=== PATIENT | female | born 1970 | race Caucasian/White ===

== ENCOUNTER → 2016-12-14 | Outpatient (CLI) | payer BC ==
[~2016-12-14] MED LIST: ASPIRIN325 MG PO; ATARAX,VISTARIL50 MG PO; ATIVAN1 MG PO; CATAFLAM50 MG PO; DOXYCYCLINE100 M2 PO; FLONASE ALLERG9.9 ML NAS; LEVOFLOXACIN500 MG PO; MEDROL DOSEPAK4 MG PO; NAPROSYN500 MG PO; PEPCID40 MG PO; PREDNISOLONE5 MG PO; PREDNISONE20 M1 PO; PROAIR HFA8.5 GM INH; PROTONIX40 MG PO; ROBAXIN500 MG PO; ROBITUSSIN AC 10 MG/ PO; ROBITUSSIN AC 110 ML PO; ULTRAM50 MG PO; VICODIN 500 MG-1 TAB PO; ZITHROMAX Z PA250 MG PO
== END | disposition home or self-care (01) ==
LOC: RAD 16:41
DX: S80.01XD Contusion of right knee, subsequent encounter (principal); X58.XXXD Exposure to other specified factors, subsequent encounter

== ENCOUNTER → 2017-04-11 | Outpatient (CLI) | payer BC ==
[2017-04-11 12:46] LABS: BODY FLUID WBC 276 /uL
[2017-04-11 13:31] LABS: BF LYMPHOCYTES 20 %; BF MACROPHAGES 57 %; BF NEUTROPHILS 23 %
[2017-04-12 14:05] LABS: ACID FAST SMEAR Negative (.)
== END | disposition home or self-care (01) ==
LOC: LAB 10:50
PROVIDERS: Physician Assistant
DX: M25.461 Effusion, right knee (principal)

== ENCOUNTER 2018-06-14 18:51 | Emergency (ER) | payer BC ==
[~2018-06-14] VITALS: Ht 162.5 cm; Wt 120.7 kg
[2018-06-14 18:52] VITALS: BP 153/91
[2018-06-14 19:57] LABS: BASO # 0.1 10*3/uL (0.0-0.1); BASO % 0.6 % (0.0-1.0); EOS # 0.2 10*3/uL (0.0-0.4); EOS % 1.3 % (1.0-4.0); HEMATOCRIT 47.1 % (37.0-47.0); HEMOGLOBIN 15.5 g/dl (12.0-16.0); LYMPH # 3.4 10*3/uL (1.3-4.4); LYMPH % 26.8 % (27.0-41.0); MEAN CELL VOLUME 94.6 fl (81.0-99.0); MEAN CORPUSCULAR HGB 31.1 pg (27.0-31.0); MEAN CORPUSCULAR HGB CONC 32.9 g/dl (33.0-37.0); MEAN PLATELET VOLUME 9.7 fl (9.6-12.3); MONO # 0.6 10*3/uL (0.1-1.0); MONO % 4.8 % (3.0-9.0); NEUT # 8.3 10*3/uL (2.3-7.9); PLATELET COUNT AUTOMATED 334 10*3/uL (130-400); RED BLOOD COUNT 4.98 10*6/uL (4.10-5.10); RED CELL DISTRI WIDTH 13.2 % (0-14.5); WHITE BLOOD COUNT 12.6 10*3/uL (4.8-10.8)
[2018-06-14 20:13] LABS: ALBUMIN 3.1 gm/dl (3.1-4.5); ALKALINE PHOSPHATASE 105 U/L (45-117); BUN 14 mg/dl (7-24); CHLORIDE 107 mmol/L (98-107); CREATININE 0.84 mg/dL (0.55-1.02); POTASSIUM 4.3 mmol/L (3.5-5.1); SGOT/AST 23 IU/L (3-35); SGPT/ALT 27 U/L (12-78); SODIUM 140 mmol/L (136-145); TOTAL PROTEIN 6.7 gm/dL (6.4-8.2)
[2018-06-14 20:18] LABS: LIPASE 125 U/L (73-393)
[2018-06-14 20:48] LABS: BILIRUBIN NEGATIVE (NEGATIVE); BLOOD 1+ (NEGATIVE); CLARITY CLEAR (CLEAR); COLOR YELLOW (YELLOW); GLUCOSE NEGATIVE (NEGATIVE); KETONE NEGATIVE (NEGATIVE); LEUKO ESTERASE NEGATIVE (NEGATIVE); NITRITE NEGATIVE (NEGATIVE); PH 5.5 (5.0-9.0); SPECIFIC GRAVITY >= 1.030 (1.005-1.030); UROBILINOGEN 0.2 E.U./dl (0.2-1.0)
[2018-06-14 21:12] LABS: BACTERIA TRACE
[2018-06-14 21:13] LABS: WBC 0-2 wbc/hpf (0-5)
[2018-07-04] MEDS ORDERED: CELEXA20 MG PO (06:50)
== END 2018-06-14 21:20 | disposition home or self-care (01) ==
LOC: ED 18:51
PROVIDERS: Physician Assistant
DX: B34.9 Viral infection, unspecified (principal); M79.601 Pain in right arm; R10.9 Unspecified abdominal pain; F17.200 Nicotine dependence, unspecified, uncomplicated; Z90.49 Acquired absence of other specified parts of digestive tract; Z87.442 Personal history of urinary calculi; Z88.8 Allergy status to other drugs, medicaments and biological substances; Z79.2 Long term (current) use of antibiotics; Z79.899 Other long term (current) drug therapy

== ENCOUNTER → 2018-07-04 | Outpatient (CLI) | payer BC ==
[~2018-07-04] MED LIST changes: +CELEXA20 MG PO
--- NOTE | ~2018-07-04 | ST ---
[place], [place] EXERCISE STRESS TEST REPORT [id number] #: [id number] ROOM: DOCTOR: IAN NJ MD BIRTHDATE: [birth year] DOS: 07/04/2018 FINDINGS: The patient walked on the Adrien protocol for duration of 6 minutes. Heart rate is about 164, 94% predicted heart rate. Procedure is terminated at the completion of the protocol. Baseline cardiogram is sinus rhythm. With exercise, no EKG changes. No chest discomfort. Blood pressure and heart rate response is normal. FINAL IMPRESSION: No EKG changes with exercise. No chest pain with exercise. No dysrhythmia with exercise. Blood pressure and heart rate is normal. It is a normal exercise stress test without any obvious evidence of ischemia. IAN NJ MD CM:STRESS:EXERCISE STRESS TEST REPORT [id number] IAN NJ MD
--- NOTE | ~2018-07-04 | EKG ---
[place], [place] ELECTROCARDIOGRAM REPORT NAME: ILA SNEED UNIT #: [id number] ROOM: DOCTOR: EPIPHANY DRAFT REPORT BIRTHDATE: [birth year] [facility] Test Date: 2018-07-04 Test Time: 07:26:34 Pat Name: ILA SNEED Department: Room: Gender: F Title Specialist: Leah Joyner : 1970 Requested By: IAN NJ Order Number: [id number] Reading MD: Amada Dias MD Measurements Intervals [place] Rate: 110 P: 68 [place]: 144 QRS: 34 QRSD: 75 T: 29 QT: 330 QTc: 447 Interpretive Statements Sinus tachycardia Probable left atrial enlargement Electronically Signed On 07-06-2018 13:51:05 PST by Amada Dias MD CM:EKGRPT:ELECTROCARDIOGRAM REPORT [id number] IAN NJ MD EPIPHANY DRAFT REPORT IAN NJ MD
--- NOTE | 2018-07-04 07:20 | NUR ---
INFORMED CONSENT SIGNED FOR STANDARD STRESS TEST WITH DR. NJ. RESTING EKG SINUS TACHYCARDIA, HR 107, 140/86 SUPINE, 106/78 STANDING. PT WAS ASYMPTOMATIC. COMPLETED 6:[address] PROTOCOL COMPLETING 3:00 OF STAGE II, 2.5 MPH/12% GRADE. TEST TERMINATED D/T FATIGUE AND SOB. PEAK HEART RATE OF 167 ACHIEVED WHICH IS 96% PREDICTED MAXIMUM AND A PEAK BP OF 138/80. HAS A FAIR EXERCISE TOLERANCE. NO ARRHYTHMIAS OR ST CHANGES NOTED. LAST RECOVERY HR 120, BP 122/78. THIS IS A NEGATIVE STRESS TEST. LEFT CARDIOLOGY IN STABLE CONDITION.
== END | disposition home or self-care (01) ==
LOC: CARD 02:16
DX: Z01.810 Encounter for preprocedural cardiovascular examination (principal); E66.01 Morbid (severe) obesity due to excess calories; R61 Generalized hyperhidrosis; Z82.49 Family history of ischemic heart disease and other diseases of the circulatory system; Z72.0 Tobacco use

== ENCOUNTER 2018-10-21 00:08 | Emergency (ER) | payer BC ==
[~2018-10-21] VITALS: Ht 162.5 cm; Wt 117.9 kg
[2018-10-21 00:11] VITALS: BP 142/82
== END 2018-10-21 02:41 | disposition home or self-care (01) ==
LOC: ED 00:08
DX: S93.401A Sprain of unspecified ligament of right ankle, initial encounter (principal); Z88.8 Allergy status to other drugs, medicaments and biological substances; Z79.899 Other long term (current) drug therapy; Z90.49 Acquired absence of other specified parts of digestive tract; W10.9XXA Fall (on) (from) unspecified stairs and steps, initial encounter; Y93.89 Activity, other specified; Y92.89 Other specified places as the place of occurrence of the external cause; Y99.8 Other external cause status

== ENCOUNTER → 2022-10-14 | Outpatient (CLI) | payer BC ==
[2022-10-14 08:11] LABS: BASO # 0.1 10*3/uL (0.0-0.1); BASO % 0.6 % (0.0-1.0); EOS # 0.1 10*3/uL (0.0-0.4); EOS % 0.7 % (1.0-4.0); LYMPH # 2.1 10*3/uL (1.3-4.4); LYMPH % 22.1 % (27.0-41.0); MEAN CELL VOLUME 92.9 fl (81.0-99.0); MEAN CORPUSCULAR HGB 30.6 pg (27.0-31.0); MEAN CORPUSCULAR HGB CONC 32.9 g/dl (33.0-37.0); MONO # 0.5 10*3/uL (0.1-1.0); MONO % 4.8 % (3.0-9.0); NEUT # 6.9 10*3/uL (2.3-7.9); NEUT % 71.5 % (47.0-73.0); PLATELET COUNT AUTOMATED 266 10*3/uL (130-400); RED BLOOD COUNT 5.49 10*6/uL (4.10-5.10); WHITE BLOOD COUNT 9.6 10*3/uL (4.8-10.8)
[2022-10-14 08:12] LABS: BILIRUBIN 1+ (Negative); BLOOD 2+ (Negative); CLARITY Cloudy (Clear); COLOR Dark Yellow (Yellow); GLUCOSE Negative (Negative); KETONE Negative (Negative); LEUKO ESTERASE 1+ (Negative); NITRITE Negative (Negative)
[2022-10-14 08:29] LABS: BACTERIA 3+; EPITHELIAL CELLS 31-40; MUCOUS 2+
[2022-10-14 08:38] LABS: ALKALINE PHOSPHATASE 84 U/L (46-116); BUN 8 mg/dl (9-23); CHLORIDE 104 mmol/L (98-107); CHOLESTEROL 153 mg/dL (<200); LDL CHOLESTEROL 92 mg/dL (9-159); POTASSIUM 4.1 mmol/L (3.4-5.1); SGPT/ALT 12 U/L (10-49); THYROID STIM HORMONE (HS) 0.996 uIU/ml (0.550-4.780); TOTAL PROTEIN 6.6 gm/dL (6.0-8.0); TRIGLYCERIDES 128 mg/dl (<150)
[2022-10-14 08:59] LABS: VITAMIN D, 25-HYDROXY 39.3 ng/mL (30-100)
== END | disposition home or self-care (01) ==
LOC: LAB 07:49
PROVIDERS: ATTEND Nurse Practitioner Family
DX: N18.9 Chronic kidney disease, unspecified (principal); E78.5 Hyperlipidemia, unspecified; E55.9 Vitamin D deficiency, unspecified; R94.6 Abnormal results of thyroid function studies; R35.0 Frequency of micturition; R73.9 Hyperglycemia, unspecified; D50.9 Iron deficiency anemia, unspecified; D51.0 Vitamin B12 deficiency anemia due to intrinsic factor deficiency

== ENCOUNTER → 2022-12-14 | Outpatient (CLI) | payer BC | END | disposition home or self-care (01) | LOC: RAD 14:34 | PROVIDERS: ATTEND Nurse Practitioner Family | DX: M25.561 Pain in right knee (principal) ==

== ENCOUNTER → 2023-01-05 | Outpatient (CLI) | payer BC ==
[2023-01-05 17:30] LABS: BASO # 0.1 10*3/uL (0.0-0.1); BASO % 0.4 % (0.0-1.0); EOS # 0.1 10*3/uL (0.0-0.4); EOS % 0.7 % (1.0-4.0); HEMATOCRIT 49.1 % (37.0-47.0); LYMPH # 3.1 10*3/uL (1.3-4.4); LYMPH % 26.2 % (27.0-41.0); MEAN CELL VOLUME 93.9 fl (81.0-99.0); MEAN CORPUSCULAR HGB 31.5 pg (27.0-31.0); MEAN CORPUSCULAR HGB CONC 33.6 g/dl (33.0-37.0); MEAN PLATELET VOLUME 10.4 fl (9.6-12.3); MONO # 0.5 10*3/uL (0.1-1.0); MONO % 4.2 % (3.0-9.0); NEUT # 8.1 10*3/uL (2.3-7.9); NEUT % 68.2 % (47.0-73.0); PLATELET COUNT AUTOMATED 278 10*3/uL (130-400); RED BLOOD COUNT 5.23 10*6/uL (4.10-5.10); RED CELL DISTRI WIDTH 13.4 % (0-14.5); WHITE BLOOD COUNT 11.9 10*3/uL (4.8-10.8)
[2023-01-05 17:45] LABS: ACT PARTIAL THROMBO TIME 29.5 SECONDS (20.0-32.1)
[2023-01-05 17:54] LABS: ALKALINE PHOSPHATASE 87 U/L (46-116); BUN 10 mg/dl (9-23); CHLORIDE 105 mmol/L (98-107); POTASSIUM 4.1 mmol/L (3.4-5.1); SGPT/ALT 18 U/L (10-49); TOTAL PROTEIN 7.1 gm/dL (6.0-8.0)
== END | disposition home or self-care (01) ==
LOC: LAB 16:47
PROVIDERS: ATTEND Nurse Practitioner Family
DX: Z01.818 Encounter for other preprocedural examination (principal)

== ENCOUNTER → 2024-11-28 | Outpatient (CLI) | payer BC ==
[2024-11-28 10:13] LABS: BASO # 0.1 10*3/uL (0.0-0.1); BASO % 0.5 % (0.0-1.0); BILIRUBIN 1+ (Negative); BLOOD Trace-Lysed (Negative); CLARITY Cloudy (Clear); COLOR Dark Yellow (Yellow); EOS # 0.1 10*3/uL (0.0-0.4); EOS % 0.9 % (1.0-4.0); KETONE Trace (Negative); LEUKO ESTERASE 1+ (Negative); MEAN CELL VOLUME 91.8 fl (81.0-99.0); MEAN CORPUSCULAR HGB 30.7 pg (27.0-31.0); MEAN PLATELET VOLUME 10.3 fl (9.6-12.3); MONO # 0.5 10*3/uL (0.1-1.0); MONO % 4.9 % (3.0-9.0); NEUT # 7.1 10*3/uL (2.3-7.9); NEUT % 72.5 % (47.0-73.0); NITRITE Negative (Negative); NUCLEATED RED BLOOD CELL 0.0 % (0.0-0.0); NUCLEATED RED BLOOD CELL 0.0 10*3/uL (0.0-0.0); PH 5.5 (4.5-8.0); PLATELET COUNT AUTOMATED 264 10*3/uL (130-400); RED CELL DISTRI WIDTH 12.6 % (0-14.5); SPECIFIC GRAVITY >= 1.030 (1.001-1.030); UROBILINOGEN 1.0 E.U./dl (0.0-1.0)
[2024-11-28 10:25] LABS: EPITHELIAL CELLS TNTC; MUCOUS 2+
[2024-11-28 10:44] LABS: BUN 13 mg/dl (9-23); LDL CHOLESTEROL 123 mg/dL (9-159); SGPT/ALT 9 U/L (5-49)
[2024-11-28 12:14] LABS: VITAMIN D, 25-HYDROXY 48.3 ng/mL (30-100)
== END | disposition home or self-care (01) ==
LOC: LAB 09:34
PROVIDERS: ATTEND Nurse Practitioner Family
DX: N18.9 Chronic kidney disease, unspecified (principal); R79.9 Abnormal finding of blood chemistry, unspecified; R94.6 Abnormal results of thyroid function studies; E55.9 Vitamin D deficiency, unspecified; E78.5 Hyperlipidemia, unspecified; E61.2 Magnesium deficiency; D50.9 Iron deficiency anemia, unspecified; D51.0 Vitamin B12 deficiency anemia due to intrinsic factor deficiency

== ENCOUNTER → 2025-03-20 | Outpatient (CLI) | payer BC ==
[~2025-03-20] MED LIST changes: +AMLODIPINE BESYL5 MG PO; +ASPIRIN ADULT L81 M2 PO; +CITALOPRAM40 MG PO; +CLONIDINE HCL0.1 MG PO; +LIPITOR40 MG PO; +METOPROLOL SUCC25 M2 PO; +PHENTERMINE H37.5 M1 PO; +POTASSIUM CHLO10 MEQ PO
== END | disposition home or self-care (01) ==
LOC: LAB 12:08
PROVIDERS: ATTEND Internal Medicine Critical Care Medicine
DX: R06.83 Snoring (principal); R53.83 Other fatigue; G47.33 Obstructive sleep apnea (adult) (pediatric); Z68.42 Body mass index [BMI] 45.0-49.9, adult; Z87.891 Personal history of nicotine dependence